=== PATIENT | male | born 1960 | race Two or more races ===

== ENCOUNTER 2017-08-08 01:41 | Inpatient (IN) | payer OTHER ==
[~2017-08-08] VITALS: Ht 193 cm; Wt 106.6 kg
[2017-08-08 02:47] LABS: BASOPHILS % 0.5 % (0.0-2.0); EOSINOPHILS % 1.6 % (0.0-5.0); HEMATOCRIT. 44.9 % (42.0-52.0); HEMOGLOBIN. 15.3 g/dL (14.0-18.0); LYMPHOCYTES % 17.6 % (20.0-50.0); MEAN CORPUSCULAR HEMOGLOBIN 30.4 pg (28.0-32.0); MEAN PLATELET VOLUME 9.4 fl (7.4-10.4); MONOCYTES % 7.5 % (2.0-8.0); NEUTROPHILS % 72.8 % (40.0-76.0); PLATELET 139 x1000/uL (130-400); RED BLOOD CELL COUNT 5.04 mill/uL (4.7-6.1); RED CELL DISTRIBUTION WIDTH 14.2 % (11.6-14.6)
[2017-08-08 02:53] LABS: CHLORIDE 102 mEq/L (98-107)
[2017-08-08 02:56] LABS: PROTHROMBIN TIME 10.7 sec (9.4-11.6)
[2017-08-08 06:50] VITALS: BP 131/77
[2017-08-08] MEDS: BLOOD SUGAR DIAGNOSTIC STRIP TEST SCH ×3 (07:30→17:07)
[2017-08-08] MEDS ORDERED: DEXTROSE 50% WATER 50ML SYRINGE IV PRN (07:30)
[2017-08-08] MEDS ORDERED: HYDROCODONE/ACETAMINOPHEN 5/325MG TABLET PO PRN (07:30)
[2017-08-08] MEDS ORDERED: ACETAMINOPHEN 325MG TABLET PO PRN (07:30)
[2017-08-08 08:00] VITALS: BP 124/61
[2017-08-08 08:07] VITALS: BP 121/74
[2017-08-08] MEDS: INSULIN LISPRO 100 UNITS/ML SUBCUT SCH ×3 (08:30→18:06)
[2017-08-08 12:18] VITALS: BP 128/68
[2017-08-08 13:23] LABS: LDL CHOLESTEROL 12 mg/dL (5-100)
[2017-08-08 13:24] LABS: HDL CHOLESTEROL 32 mg/dL (40-59)
[2017-08-08] MEDS ORDERED: METF10004 PO (14:36)
[2017-08-08] MEDS ORDERED: LOSA50TA20 PO (14:36)
[2017-08-08 16:00] VITALS: BP_SYST 113; BP_SYST 119; BP_SYST 126; BP_DIAS 66; BP_DIAS 70; BP_DIAS 77
[2017-08-08] MEDS ORDERED: GLIP5TAB12 MT (16:10)
== END 2017-08-08 19:00 | disposition left against medical advice (07) | DRG 74 ==
LOC: ER 01:41 → 6WST 03:37 → EDBEDREQTM 03:48 → EDBEDREQ 03:48 → ENRESERV 05:11
PROVIDERS: ADMIT Internal Medicine; ATTEND Internal Medicine
DX: G90.8 Other disorders of autonomic nervous system (principal); E11.9 Type 2 diabetes mellitus without complications; E78.00 Pure hypercholesterolemia, unspecified; E78.5 Hyperlipidemia, unspecified; I10 Essential (primary) hypertension; F80.82 Social pragmatic communication disorder; Z79.899 Other long term (current) drug therapy
CPT/HCPCS: 36415; 70450; 70551; 71045; 80053; 80061; 82962; 83036; 83880; 84443; 84484; 85025; 85610; 93005; 93880; 99285; J1815